=== PATIENT | male | born 1950 | race Caucasian/White ===

== ENCOUNTER 2016-10-06 10:59 | Day surgery (SDC) | payer BC ==
[2016-10-03 14:47] LABS: HEMATOCRIT 42.3 % (40.0-51.0); HEMOGLOBIN 14.5 g/dL (13.6-17.8)
[2016-10-03 15:03] LABS: BUN (BLOOD UREA NITROGEN) 21 MG/DL (6-23); CHLORIDE, SERUM 100 MMOL/L (96-112); CO2 (CARBON DIOXIDE) 33 MMOL/L (24-34); CREATININE 1.25 MG/DL (0.70-1.30); GFR AFRICAN AMERICAN 69 ML/MIN (>=60); GFR NON AFRICAN AMERICAN 59 ML/MIN (>=60); POTASSIUM, SERUM 3.7 MMOL/L (3.5-5.3); SODIUM, SERUM 141 MMOL/L (135-148)
[2016-10-03 15:04] LABS: GLUCOSE, SERUM 63 MG/DL (60-99)
--- NOTE | ~2016-10-06 | OP ---
Record Of Operation [facility] [address] [place]. 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 NAME OF OPERATION: 1. Excision of deep margin left nasal ala with frozen section. 2. Reconstruction of left nasal ala with nasal rotation flap and composite skin-cartilage auricular graft to the right nasal vestibule. 3. Harvesting of skin graft from right upper preauricular area. 4. Full-thickness skin graft to left ear composite graft donor site defect. FINDINGS: A 1.5 cm wide x 1 cm tall through and through defect of the left nasal ala into the nasal cavity located at approximately 5 mm from the alar rim. INDICATIONS: This 66-year-old gentleman, who had a surgery in the office to remove a biopsy proven squamous cell carcinoma of the left nasal ala. We did dueñas frozen sections. Peripheral margins were clear, but the deep margin was involved. An additional revised deep margin was then taken. This involved approximately 3 mm of through and through defect into the nasal cavity. Dueñas frozen sections showed residual tumor at the base. The wound was sutured closed and the nose was dressed and he was started on antibiotics. He now presents to the operating room for further wide excision of the deep margin and reconstruction. The pros and cons, alternatives, benefits, risks, limitations, and complications associated with this large defect were discussed at length with the patient. We discussed the risks and complications of infection, distortion of the nose, recurrence of tumor, need for secondary surgery, at a later date possibly, graft failure, flap failure, imponderables. He understands and wishes to proceed. Proper consent was obtained. DESCRIPTION OF PROCEDURE: He was taken into the operating room and given general oral endotracheal anesthesia in the supine position. The dressing on his nose was removed. The nose, face, upper neck, right ear, periauricular face, scalp, and neck were prepped with Hibiclens and saline followed by isopropyl alcohol. Same preparation was done and intranasally with cotton tip applicators. Sterile drapes were applied. The sutures on the nose were removed intranasally and on the external surface of the nose. the wound was then prepped with Hibiclens and saline. The nose was injected with 1% Xylocaine with 1:100,000 epinephrine and 0.5% Marcaine with 1:200,000 epinephrine. The pathologist was brought into the room. This was Dr. Trevino, who had done the pathology on Sunday, so, he was familiar with the pathology and the orientation. Next, full-thickness deep margin was taken circumferentially, so that now there was a 1.5 cm wide x 1.0 cm tall through and through defect into the nasal cavity. The specimen was marked with a suture at the 12 o'clock position. It was given to the Record Of Operation [address] [address] NAME: OMID HEMPHILL : 48 STATUS : [facility] PAT#: [id number] AGE: 66 ADM/REG DATE : 10/06/16 MR#: [id number] REPORT SERV DATE: 10/09/16 DICTATED BY: Laura LOCKHART DATE: 10/09/16 REPORT STATUS : Draft TRANSCRIBED BY: ELIZABETH DATE: 10/09/16 pathologist to perform frozen sections. Frozen section showed margins free of tumor. This was a most difficult reconstruction. Simple sutures were placed and the retraction of the nostril was excessive. The sutures were removed. First, the entire dorsum and left side of the nose was elevated above the level of the cartilage, and above the level of the perichondrium, and periosteum of the nasal skeleton. This was to help mobilize the skin downward. A rotation flap was developed in the alar crease and the lateral ala, and this rotation flap was elevated with a [email or web address] needle tip cautery for hemostasis and flap elevation. This was rotated to fill a portion of the defect to help prevent retraction. The dog-ear deformity was excised laterally. Closure was accomplished with 5-0 Vicryl deep and 6-0 Prolene on the skin. It was felt that the remainder this could be closed with interrupted 6-0 Prolene sutures, but that caused too much retraction alone. The nasal vestibule needed to be strengthened and reconstructed. A template was made of the defect inside the nose which measured 1 cm x 1.5 cm. This template was placed in the preauricular area above the level of the tragus in front of the ear. An ellipse was formed around this with a marking pen and the area was injected with 1% Xylocaine with 1:100,000 epinephrine, and 0.5% Marcaine with 1:200,000 epinephrine. This ellipse of skin was excised with a #15 blade, full-thickness skin and some subcutaneous fat. Hemostasis was obtained with electrocautery. This harvest site of the skin graft was closed with. 5-0 Vicryl deep and Dermabond on the skin. The harvested skin graft was placed in saline. The template was once again used to place in the nohelia bowl inferiorly and laterally. It was marked out and then the area was injected with 1% Xylocaine with 1:100,000 epinephrine and 0.5% Marcaine with 1:200,000 epinephrine. A #15 blade was used to incise the skin and cartilage, and remove the skin with the cartilage in one piece, leaving the soft tissue and skin on the posterior surface of the ear intact. A gauze was placed in the defect donor site. The harvested auricular composite cartilage and skin graft was then carefully placed in to the nasal vestibule and sutured in place with 6-0 Vicryl deep. The cephalic edge of the graft was sutured to the caudal edge of the alar cartilage to help push the rim of the nostril inferiorly. Next, the ala was treated with making a small plastic stents to help "sandwich" the composite graft and stabilized the composite graft. Xeroform was placed on the external portion of the ala over the reconstruction and then the plastic (cut from a sterile medicine cups) was placed like a button over top of the Xeroform and then a through and through suture of 4-0 Prolene was placed through this and through the ala, and through the composite graft, and then through another piece of sterile plastic on the inside of the nose, and then brought back through this plastic, and then through the graft and ala, and out through the Xeroform in the plastic "button" on the external nose. This suture was tied gently, but firmly, so was not to necrose tissues, but to help prevent any hematoma from forming. The skin graft was defatted and then cut to fit, and sutured in place in the left ear donor Record Of Operation [facility] [address] [place]. [address] NAME: OMID HEMPHILL : 48 STATUS : [facility]#: [id number] AGE: 66 ADM/REG DATE : 10/06/16 MR#: [id number] REPORT SERV DATE: 10/09/16 DICTATED BY: Laura LOCKHART DATE: 10/09/16 REPORT STATUS : Draft TRANSCRIBED BY: ELIZABETH DATE: 10/09/16 site with 6-0 Prolene peripherally, and then through and through quilting with 6-0 Prolene was performed to secure the graft further. The graft was further treated with Xeroform and then a cotton ball which was then hardened with Dermabond. Mastisol and paper tape were applied in an antitension fashion to the ear. A strip of Telfa was placed behind the ear and taped with white tape. The nose was then further secured with Mastisol and paper tape. The preauricular skin graft donor site was treated also with Mastisol and paper tape. He was awakened, extubated, and taken recovery room in good condition having tolerated the procedure well. Home going instructions included continuing his antibiotic, taking Ultram for pain. A prescription for Zofran was written also p.r.n. nausea or vomiting. He is to keep his face still and the dressings dry and intact. He can remove the white dressing behind his ear in two days. Recheck in the office in the 10 days and p.r.n. REGISL/JOANNEL Laura Lockhart M.D. / [id number] CC: Cheryl Dowling M.D.
[~2016-10-06 10:59] MED LIST: ADVIL PO; BENICAR HCT1 TAB PO; C5; COQ-10200 MG PO; CRESTOR5 MG PO; CYMBALTA60 PO; FLOMAX4 PO; FOLIC PO; LOZOLTAB PO; PCET PO; PRILOSEC40 MG PO; PROSTATE; ZYRTEC ALLGY10 MG PO
== END 2016-10-06 20:35 | disposition home or self-care (01) ==
LOC: SDC 10:59
PROVIDERS: Specialist
PROC: 0HR1X73 Replacement of Face Skin with Autologous Tissue Substitute, Full Thickness, External Approach (ICD-10-PCS; principal; 2016-10-06 12:45)
DX: C44.321 Squamous cell carcinoma of skin of nose (principal); E78.5 Hyperlipidemia, unspecified; I10 Essential (primary) hypertension; M19.90 Unspecified osteoarthritis, unspecified site; K21.9 Gastro-esophageal reflux disease without esophagitis; E78.00 Pure hypercholesterolemia, unspecified; N40.0 Benign prostatic hyperplasia without lower urinary tract symptoms; Z98.890 Other specified postprocedural states; Z79.899 Other long term (current) drug therapy
CPT/HCPCS: 80048; 85014; 85018; 88305; 88331; 93005; A9270-GY; J0690; J2250; J2370; J2405; J2710; J3010